=== PATIENT | female | born 1950 | race Caucasian/White ===

== ENCOUNTER 2021-11-16 12:39 | Emergency (ER) | payer MEDICARE, MEDICAID ==
[~2021-11-16] VITALS: Ht 162.6 cm; Wt 117.9 kg
[2021-11-16 12:44] VITALS: BP 136/75
--- NOTE | 2021-11-16 12:59 | NUR ---
Patient wheelchair assisted to bed 4.
[2021-11-16] MEDS ORDERED: KETOROLAC 15 MG/ML VIAL IM ONE (14:35)
[2021-11-16] MEDS ORDERED: KETOROLAC 15 MG/ML VIAL ONE (16:19)
--- NOTE | 2021-11-16 16:34 | NUR ---
PT C/O RIGHT SHOULDER, RIGHT KNEE PAIN S/P FALL. DENIES LOC.
[2021-11-16] MEDS ORDERED: IBUP-2213 PO (16:41)
--- NOTE | 2021-11-16 16:56 | NUR ---
sling applied to r arm. pt tolerated sling. + cms
[2021-11-16 18:12] VITALS: BP 134/70
--- NOTE | 2021-11-16 18:12 | NUR ---
Patient discharged with v/s stable. Written and verbal after care instructions given and explained. Patient verbalized understanding. Ambulatory with steady gait. All questions addressed prior to discharge. Advised to follow up with PMD.
== END 2021-11-16 18:12 | disposition home or self-care (01) ==
LOC: MED 12:39
DX: S42.291A Other displaced fracture of upper end of right humerus, initial encounter for closed fracture (principal); I10 Essential (primary) hypertension; E03.9 Hypothyroidism, unspecified; Z79.899 Other long term (current) drug therapy; W19.XXXA Unspecified fall, initial encounter; Y93.89 Activity, other specified; Y92.89 Other specified places as the place of occurrence of the external cause; Y99.8 Other external cause status
CPT/HCPCS: 73030; 73562; 81002; 96372; 99284; J1885